=== PATIENT | female | born 2000 | race Two or more races ===

== ENCOUNTER 2023-05-16 22:56 | Emergency (ER) | payer OTHER ==
[~2023-05-16] VITALS: Ht 177.8 cm; Wt 52.2 kg
== END 2023-05-17 03:07 | disposition home or self-care (01) ==
LOC: ER 22:56
DX: S50.11XA Contusion of right forearm, initial encounter (principal); X58.XXXA Exposure to other specified factors, initial encounter; Y93.89 Activity, other specified; Y92.89 Other specified places as the place of occurrence of the external cause; Y99.8 Other external cause status; Z91.013 Allergy to seafood; Z91.040 Latex allergy status